=== PATIENT | female | born 1990 | race Caucasian/White ===

== ENCOUNTER 2016-05-01 22:30 | Emergency (ER) | payer MEDICAID ==
[~2016-05-01] VITALS: Ht 149.9 cm; Wt 44.0 kg
[~2016-05-01 22:30] MED LIST: BIRTH CONTROL PILL; EXCEDRINE; NEXIUM
[2016-05-01 23:06] VITALS: BP 130/69; PULSE 87; RESP 18; TEMP 97.9; O2SAT 98
[2016-05-01] MEDS ORDERED: AMOXICILLIN 500 MG CAPSULE PO ONE (23:45)
[2016-05-01 23:57] VITALS: BP 125/85; PULSE 85; RESP 18; TEMP 98.2; O2SAT 98
== END 2016-05-01 23:57 | disposition home or self-care (01) ==
LOC: SED 22:30
DX: K08.89 Other specified disorders of teeth and supporting structures (principal)
CPT/HCPCS: 99283

== ENCOUNTER 2016-05-06 13:07 | Emergency (ER) | payer MEDICAID ==
[~2016-05-06] VITALS: Ht 149.9 cm; Wt 43.1 kg
[2016-05-06 13:15] VITALS: BP 141/81; PULSE 105; RESP 16; TEMP 98.3; O2SAT 100
--- NOTE | 2016-05-06 14:21 | NUR ---
Called patient to room. No answer.
--- NOTE | 2016-05-06 14:26 | NUR ---
Patient is not in waiting room, hallway or restoom
--- NOTE | 2016-05-06 14:30 | NUR ---
Patient left without being seen.
== END 2016-05-06 14:30 | disposition left against medical advice (07) ==
LOC: SED 13:07
DX: R52 Pain, unspecified (principal); R50.9 Fever, unspecified; R05 Cough; Z53.21 Procedure and treatment not carried out due to patient leaving prior to being seen by health care provider

== ENCOUNTER 2016-07-31 13:15 | Emergency (ER) | payer MEDICAID ==
[~2016-07-31] VITALS: Ht 149.9 cm; Wt 44.5 kg
[~2016-07-31 13:15] MED LIST changes: -NEXIUM
[2016-07-31 13:28] VITALS: BP_SYST 128
[2016-07-31] MEDS ORDERED: ONDANSETRON 4 MG ODT TAB PO ONE (13:45)
[2016-07-31 14:11] LABS: BASOPHILS # (AUTO) 0.1 K/uL (0.0-0.2); BASOPHILS % (AUTO) 0.6 % (0.0-2.0); EOSINOPHILS # (AUTO) 0.1 K/uL (0.0-0.4); EOSINOPHILS % (AUTO) 1.3 % (0.0-4.0); HEMATOCRIT 40.1 % (36-48); HEMOGLOBIN 13.7 g/dL (12.0-16.0); LYMPHOCYTES # (AUTO) 0.9 K/uL (1.0-5.5); LYMPHOCYTES % (AUTO) 9.7 % (20.5-51.5); MEAN CORPUSCULAR HEMOGLOBIN 30 pg (27-31); MEAN CORPUSCULAR HGB CONC 34 % (32-36); MEAN CORPUSCULAR VOLUME 87 fL (79.0-98.0); MONOCYTES # (AUTO) 0.4 K/uL (0.0-1.0); MONOCYTES % (AUTO) 4.7 % (1.7-9.3); NEUTROPHILS # (AUTO) 7.6 K/uL (1.8-7.7); NEUTROPHILS % (AUTO) 83.7 % (40.0-70.0); PLATELET COUNT (AUTO) 219 K/uL (130-430); RED BLOOD CELL COUNT(AUTO) 4.62 MIL/uL (4.2-6.2); WHITE BLOOD COUNT (AUTO) 9.1 K/uL (4.8-10.8)
[2016-07-31 14:24] LABS: CALCIUM 8.5 mg/dL (8.4-11.0); CREATININE 0.69 mg/dL (0.55-1.30); POTASSIUM 3.9 mmol/L (3.5-5.1)
[2016-07-31 14:26] LABS: INR 1.1 (0.8-1.2); PROTHROMBIN TIME 11.4 SECS (9.5-12.5)
[2016-07-31 14:28] LABS: ALBUMIN 4.2 g/dL (3.4-4.8); TOTAL BILIRUBIN 0.8 mg/dL (0.0-1.0); TOTAL PROTEIN, SERUM 7.3 g/dL (6.4-8.3)
[2016-07-31 14:32] LABS: BILIRUBIN,URINE NEGATIVE (NEGATIVE); BLOOD, URINE 1+ (NEGATIVE); CLARITY/URINE HAZY (CLEAR); COLOR,URINE YELLOW (YELLOW); GLUCOSE,URINE NEGATIVE (NEGATIVE); KETONES,URINE NEGATIVE (NEGATIVE); LEUKOCYTE ESTERASE ,URINE NEGATIVE (NEGATIVE); NITRITE, URINE NEGATIVE (NEGATIVE); PH,URINE 8.5 (5.0-8.0); PROTEIN URINE 1+ (NEGATIVE); UROBILINOGEN,URINE 0.2 (0.2-1.0)
[2016-07-31 14:45] LABS: RBC,URINE 0-3 /HPF (0-3)
[2016-07-31 14:46] LABS: BACTERIA,URINE FEW /HPF (None Seen); MUCUS,URINE None Seen /LPF (None Seen); URINE AMORPHOUS PHOSPHATES 1+ /HPF (None Seen)
[2016-07-31 15:48] VITALS: BP_SYST 128
== END 2016-07-31 15:48 | disposition home or self-care (01) ==
LOC: SED 13:15
DX: N39.0 Urinary tract infection, site not specified (principal)
CPT/HCPCS: 36415; 74176; 80053; 81000; 83690; 85025; 85610; 85730; 99285; J7030; Q0162

== ENCOUNTER 2017-05-26 08:25 | Emergency (ER) | payer MEDICAID ==
[~2017-05-26] VITALS: Ht 149.9 cm; Wt 46.7 kg
[2017-05-26 08:29] VITALS: BP_SYST 140
[2017-05-26] MEDS ORDERED: DIPH-TET-PERTUS Vaccine 0.5 ML VIAL (ADACEL) I.M. ONE (09:00)
[2017-05-26 10:15] VITALS: BP_SYST 116
== END 2017-05-26 10:15 | disposition home or self-care (01) ==
LOC: SED 08:25
DX: S60.411A Abrasion of left index finger, initial encounter (principal); F17.210 Nicotine dependence, cigarettes, uncomplicated; Z90.49 Acquired absence of other specified parts of digestive tract; W55.01XA Bitten by cat, initial encounter; Y93.89 Activity, other specified; Y92.89 Other specified places as the place of occurrence of the external cause; Y99.8 Other external cause status
CPT/HCPCS: 90715; 99283

== ENCOUNTER 2018-01-20 19:50 | Emergency (ER) | payer MEDICAID ==
[~2018-01-20] VITALS: Ht 149.9 cm; Wt 44.0 kg
[2018-01-20 20:14] VITALS: BP_SYST 134
[2018-01-20 21:18] VITALS: BP_SYST 128
== END 2018-01-20 21:18 | disposition home or self-care (01) ==
LOC: SED 19:50
DX: K12.0 Recurrent oral aphthae (principal)
CPT/HCPCS: 99282

== ENCOUNTER 2019-05-15 07:21 | Emergency (ER) | payer MEDICAID ==
[~2019-05-15] VITALS: Ht 152.4 cm; Wt 43.5 kg
[2019-05-15 07:37] VITALS: BP_SYST 133
[2019-05-15 07:59] VITALS: BP_SYST 133
== END 2019-05-15 08:20 | disposition home or self-care (01) ==
LOC: SED 07:21
DX: K08.89 Other specified disorders of teeth and supporting structures (principal); F41.9 Anxiety disorder, unspecified; F17.200 Nicotine dependence, unspecified, uncomplicated
CPT/HCPCS: 99283

== ENCOUNTER 2019-05-15 23:36 | Emergency (ER) | payer MEDICAID ==
[~2019-05-15] VITALS: Ht 152.4 cm; Wt 43.5 kg
[2019-05-15 23:47] VITALS: BP_SYST 123
[2019-05-16] MEDS ORDERED: CLINDAMYCIN 600 MG in D5W 50 ML IV ONE (01:30)
[2019-05-16] MEDS ORDERED: NACL 0.9% 1,000 ML IV ONE (01:30)
[2019-05-16] MEDS ORDERED: DEXAMETHASONE SOD PHOSPHATE 10 MG/ML VIAL IVP ONE (01:30)
[2019-05-16 01:56] LABS: BASOPHILS # (AUTO) 0.1 K/uL (0.0-0.2); BASOPHILS % (AUTO) 0.9 % (0.0-2.0); EOSINOPHILS # (AUTO) 0.2 K/uL (0.0-0.4); EOSINOPHILS % (AUTO) 2.5 % (0.0-4.0); HEMATOCRIT 39.1 % (36-48); HEMOGLOBIN 13.1 g/dL (12.0-16.0); LYMPHOCYTES # (AUTO) 1.9 K/uL (1.0-5.5); LYMPHOCYTES % (AUTO) 19.1 % (20.5-51.5); MEAN CORPUSCULAR HEMOGLOBIN 30 pg (27-31); MEAN CORPUSCULAR HGB CONC 34 % (32-36); MEAN CORPUSCULAR VOLUME 90 fL (79.0-98.0); MONOCYTES % (AUTO) 10.2 % (1.7-9.3); NEUTROPHILS # (AUTO) 6.7 K/uL (1.8-7.7); NEUTROPHILS % (AUTO) 67.3 % (40.0-70.0); PLATELET COUNT (AUTO) 270 K/uL (130-430); RED BLOOD CELL COUNT(AUTO) 4.35 MIL/uL (4.2-6.2); WHITE BLOOD COUNT (AUTO) 9.9 K/uL (4.8-10.8)
[2019-05-16] MEDS ORDERED: CLINDAMYCIN 600 mg/50mL D5W 50 ML IV ONE (01:59)
[2019-05-16 02:02] LABS: CALCIUM 8.9 mg/dL (8.4-11.0); CREATININE 0.71 mg/dL (0.55-1.30); POTASSIUM 3.8 mmol/L (3.5-5.1)
[2019-05-16] MEDS ORDERED: IOHEXOL 100 ML IV ONE (02:05)
[2019-05-16] MEDS ORDERED: MORPHINE 2 MG/ML INJ. SYRINGE IVP ONE (02:15)
[2019-05-16 03:30] VITALS: BP_SYST 123
[2019-05-16] MEDS ORDERED: KETOROLAC TROMETHAMINE 15 MG VIAL IVP ONE (03:30)
== END 2019-05-16 03:30 | disposition home or self-care (01) ==
LOC: SED 23:36
DX: K08.89 Other specified disorders of teeth and supporting structures (principal); R22.0 Localized swelling, mass and lump, head; F41.9 Anxiety disorder, unspecified; E07.9 Disorder of thyroid, unspecified
CPT/HCPCS: 36415; 70487; 80048; 81025; 82962; 85025; 87040; 96365; 96375; 99285; J1100; J1885; J2270; J3490; J7030; Q9967

== ENCOUNTER 2020-01-30 12:45 | Emergency (ER) | payer MEDICAID ==
[~2020-01-30] VITALS: Ht 149.9 cm; Wt 43.1 kg
[2020-01-30 12:56] VITALS: BP_SYST 149
[2020-01-30] MEDS ORDERED: LORazepam 2 MG/ML VIAL IVP ONE (13:15)
[2020-01-30] MEDS ORDERED: NACL 0.9% 1,000 ML IV ONE (13:15)
[2020-01-30 13:40] LABS: BASOPHILS # (AUTO) 0.1 K/uL (0.0-0.2); BASOPHILS % (AUTO) 0.8 % (0.0-2.0); EOSINOPHILS # (AUTO) 0.5 K/uL (0.0-0.4); EOSINOPHILS % (AUTO) 5.6 % (0.0-4.0); HEMOGLOBIN 14.1 g/dL (12.0-16.0); LYMPHOCYTES # (AUTO) 2.6 K/uL (1.0-5.5); LYMPHOCYTES % (AUTO) 30.7 % (20.5-51.5); MEAN CORPUSCULAR HEMOGLOBIN 30 pg (27-31); MEAN CORPUSCULAR HGB CONC 34 % (32-36); MEAN CORPUSCULAR VOLUME 89 fL (79.0-98.0); MONOCYTES # (AUTO) 0.7 K/uL (0.0-1.0); MONOCYTES % (AUTO) 8.1 % (1.7-9.3); NEUTROPHILS # (AUTO) 4.7 K/uL (1.8-7.7); NEUTROPHILS % (AUTO) 54.8 % (40.0-70.0); PLATELET COUNT (AUTO) 394 K/uL (130-430); RED BLOOD CELL COUNT(AUTO) 4.73 MIL/uL (4.2-6.2); RED CELL DISTRIBUTION WIDTH 12.6 % (9.0-15.0); WHITE BLOOD COUNT (AUTO) 8.6 K/uL (4.8-10.8)
[2020-01-30 13:43] LABS: BILIRUBIN,URINE NEGATIVE (NEGATIVE); BLOOD, URINE NEGATIVE (NEGATIVE); CLARITY/URINE CLEAR (CLEAR); COLOR,URINE YELLOW (YELLOW); GLUCOSE,URINE NEGATIVE (NEGATIVE); KETONES,URINE NEGATIVE (NEGATIVE); LEUKOCYTE ESTERASE ,URINE NEGATIVE (NEGATIVE); NITRITE, URINE NEGATIVE (NEGATIVE); PH,URINE 8.5 (5.0-8.0); PROTEIN URINE NEGATIVE (NEGATIVE); UROBILINOGEN,URINE 0.2 (0.2-1.0)
[2020-01-30 13:57] LABS: BARBITURATE, URINE NEGATIVE (NEG <=200); BENZODIAZEPINE, URINE NEGATIVE (NEG <=150); CANNABINOID, URINE POSITIVE (NEG <=50); COCAINE, URINE POSITIVE (NEG <=150); METHAMPHETAMINES SCREEN,URINE NEGATIVE (NEG <=500); OPIATE, URINE NEGATIVE (NEG <=100); PHENCYCLIDINE SCREEN,URINE NEGATIVE (NEG <=25); URINE AMPHETAMINE NEGATIVE (NEG <=500); URINE METHADONE NEGATIVE (NEG <=200); URINE OXYCODONE SCREEN NEGATIVE (NEG <=100)
[2020-01-30 13:58] LABS: UR TRICYCLIC ANTIDEPRESSANTS NEGATIVE (NEG <=300); URINE PROPOXYPHENE SCREEN NEGATIVE (NEG <=300)
[2020-01-30 14:13] LABS: CALCIUM 8.6 mg/dL (8.4-11.0); CREATININE 0.88 mg/dL (0.55-1.30); POTASSIUM 3.1 mmol/L (3.5-5.1)
[2020-01-30 14:28] LABS: ALBUMIN 4.7 g/dL (3.4-4.8); FREE T4 (FREE THYROXINE) 1.1 ng/dl (0.8-1.5); THYROID STIMULATING HORMONE 0.55 uIu/mL (0.36-3.74); TOTAL BILIRUBIN 1.3 mg/dL (0.0-1.0)
[2020-01-30 14:52] VITALS: BP_SYST 149
== END 2020-01-30 14:52 | disposition home or self-care (01) ==
LOC: SED 12:45
DX: F41.9 Anxiety disorder, unspecified (principal); R00.2 Palpitations; F14.10 Cocaine abuse, uncomplicated; F12.90 Cannabis use, unspecified, uncomplicated
CPT/HCPCS: 36415; 71045; 80053; 80307; 81003; 81025; 84439; 84443; 84479; 84484; 85025; 93005; 96374; 99285; J2060; J7030

== ENCOUNTER 2020-03-10 10:01 | Emergency (ER) | payer MEDICAID ==
[~2020-03-10] VITALS: Ht 149.9 cm; Wt 43.1 kg
[2020-03-10 10:06] VITALS: BP_SYST 137
--- NOTE | 2020-03-10 10:10 | NUR ---
Dr Cooney evaluating patient at bedside
--- NOTE | 2020-03-10 10:12 | NUR ---
Pt brought by self, A&Ox4, pt presents to ER with anxiety, pt states she started lexapro today for anxiety and not feeling good , skin pink and warm, cap refill <3, VSS.
[2020-03-10 11:33] VITALS: BP_SYST 132
--- NOTE | 2020-03-10 11:34 | NUR ---
Patient given written and verbal discharge instructions and verbalizes understanding. ER MD discussed with patient the results and treatment provided. Patient in stable condition. ID arm band removed. No Rx given. Patient educated on pain management and to follow up with PMD. Pain Scale 0/10. Opportunity for questions provided and answered. Medication side effect fact sheet provided.
== END 2020-03-10 11:34 | disposition home or self-care (01) ==
LOC: SED 10:01
DX: F41.9 Anxiety disorder, unspecified (principal); E07.9 Disorder of thyroid, unspecified; F17.200 Nicotine dependence, unspecified, uncomplicated
CPT/HCPCS: 93005; 99283

== ENCOUNTER 2020-05-18 11:03 | Emergency (ER) | payer MEDICAID ==
[~2020-05-18] VITALS: Ht 149.9 cm; Wt 44.0 kg
[2020-05-18 11:11] VITALS: BP_SYST 137
[2020-05-18] MEDS ORDERED: LIDOCAINE/EPI 1% 1:100000 20 ML VIAL INJ ONE (12:00)
[2020-05-18] MEDS ORDERED: BACITRACIN 1 GM OINT TP ONE (12:45)
[2020-05-18 12:55] VITALS: BP_SYST 137
== END 2020-05-18 12:55 | disposition home or self-care (01) ==
LOC: SED 11:03
DX: S61.411A Laceration without foreign body of right hand, initial encounter (principal); E07.9 Disorder of thyroid, unspecified; F41.9 Anxiety disorder, unspecified; W26.8XXA Contact with other sharp object(s), not elsewhere classified, initial encounter; Y93.89 Activity, other specified; Y92.89 Other specified places as the place of occurrence of the external cause; Y99.8 Other external cause status
CPT/HCPCS: 99283

== ENCOUNTER 2020-07-13 11:16 | Emergency (ER) | payer MEDICAID, SELFPAY ==
[~2020-07-13] VITALS: Ht 149.9 cm; Wt 43.1 kg
[2020-07-13 11:16] VITALS: BP_SYST 118
[2020-07-13] MEDS ORDERED: IVER3TAB PO (12:44)
[2020-07-13] MEDS ORDERED: ZINC220T4 PO (12:44)
[2020-07-13 12:50] VITALS: BP_SYST 121
== END 2020-07-13 12:50 | disposition home or self-care (01) ==
LOC: SED 11:16
DX: U07.1 COVID-19 (principal); F41.9 Anxiety disorder, unspecified; E07.9 Disorder of thyroid, unspecified; Z79.899 Other long term (current) drug therapy
CPT/HCPCS: 36415; 99283

== ENCOUNTER 2021-04-07 18:55 | Emergency (ER) | payer MEDICAID, SELFPAY ==
[~2021-04-07] VITALS: Ht 149.9 cm; Wt 41.7 kg
[~2021-04-07 18:55] MED LIST changes: +IVER3TAB PO; +ZINC220T4 PO
[2021-04-07 19:05] VITALS: BP_SYST 130
--- NOTE | 2021-04-07 19:05 | NUR ---
Patient triaged in the tent. VSS and patient appears in no acute distress at this time., awaiting available bed, and MD notified of need for MSE.
--- NOTE | 2021-04-07 19:10 | NUR ---
Pt yuriy giraldos calling her mother to pick her up
--- NOTE | 2021-04-07 19:42 | NUR ---
Sarah farmer in [facility] - 04/07/21 at 1943 by SDEDPR BASSAM Murillo examining patient in the tent.
--- NOTE | 2021-04-07 19:43 | NUR ---
Per Dr dumont pt not in the tent.Pt LWBS.
--- NOTE | 2021-04-07 19:45 | NUR ---
call pt name in the tent.no answer.
[2021-04-08] MEDS ORDERED: ANT30 PO (11:09)
[2021-04-08] MEDS ORDERED: OMEP40CA20 PO (11:09)
[2021-04-08] MEDS ORDERED: ONDA-8 TL (11:09)
[2021-04-08] MEDS ORDERED: DICY10CA13 PO (11:09)
== END 2021-04-07 19:45 | disposition left against medical advice (07) ==
LOC: SED 18:55
DX: R42 Dizziness and giddiness (principal); Z53.21 Procedure and treatment not carried out due to patient leaving prior to being seen by health care provider

== ENCOUNTER 2021-04-08 08:02 | Emergency (ER) | payer MEDICAID, SELFPAY ==
[~2021-04-08] VITALS: Ht 149.9 cm; Wt 43.1 kg
[2021-04-08 08:15] VITALS: BP_SYST 131
[2021-04-08] MEDS ORDERED: NACL 0.9% 1,000 ML IV ONE (09:00)
[2021-04-08] MEDS ORDERED: MAG HYDROX/AL HYDROX/SIMETH 30 ML, DICYCLOMINE HCL 20 MG, LIDOCAINE VISCOUS 2% 15ML (PO... PO ONE ×3 (09:00)
[2021-04-08] MEDS ORDERED: ONDANSETRON HCL 4 MG/2 ML VIAL IVP ONE (09:00)
[2021-04-08 09:28] LABS: BASOPHILS % (AUTO) 0.3 % (0.0-2.0); HEMATOCRIT 38.6 % (36-48); HEMOGLOBIN 13.1 g/dL (12.0-16.0); LYMPHOCYTES # (AUTO) 0.6 K/uL (1.0-5.5); LYMPHOCYTES % (AUTO) 4.7 % (20.5-51.5); MEAN CORPUSCULAR HEMOGLOBIN 29 pg (27-31); MEAN CORPUSCULAR HGB CONC 34 % (32-36); MEAN CORPUSCULAR VOLUME 84 fL (79.0-98.0); MONOCYTES # (AUTO) 0.4 K/uL (0.0-1.0); MONOCYTES % (AUTO) 3.1 % (1.7-9.3); NEUTROPHILS # (AUTO) 11.1 K/uL (1.8-7.7); NEUTROPHILS % (AUTO) 91.9 % (40.0-70.0); PLATELET COUNT (AUTO) 286 K/uL (130-430); RED BLOOD CELL COUNT(AUTO) 4.58 MIL/uL (4.2-6.2); RED CELL DISTRIBUTION WIDTH 12.7 % (9.0-15.0); WHITE BLOOD COUNT (AUTO) 12.1 K/uL (4.8-10.8)
--- NOTE | 2021-04-08 09:35 | NUR ---
RECEIVED REPORT, PT COMES TO ER WITH C/O NAUSEA/VOMITING X 1 DAY, X 20 TIMES. STATES SHE ATE A BURGER LAST NIGHT AND HAS FELT WITH EPIGASTRIC PAIN 10/10 LAST NIGHT. REPORTS FEELING BETTER. SKIN W/D/I. RESP EVEN AND UNLABORED, ON RA @99%.
[2021-04-08 09:39] LABS: CALCIUM 9.4 mg/dL (8.4-11.0); CREATININE 0.49 mg/dL (0.55-1.30); POTASSIUM 4.4 mmol/L (3.5-5.1)
--- NOTE | 2021-04-08 09:52 | NUR ---
NO BED AVAILABLE AT THIS TIME. IV SL TO LEF AC, MEDICATED ORDERED, IV FLUIDS INFUSING WELL. CN AWARE.
[2021-04-08 09:55] LABS: ALBUMIN 4.6 g/dL (3.4-4.8); TOTAL BILIRUBIN 2.1 mg/dL (0.0-1.0)
[2021-04-08 10:28] LABS: BILIRUBIN,URINE NEGATIVE (NEGATIVE); BLOOD, URINE NEGATIVE (NEGATIVE); CLARITY/URINE CLEAR (CLEAR); COLOR,URINE YELLOW (YELLOW); GLUCOSE,URINE NEGATIVE (NEGATIVE); KETONES,URINE 3+ (NEGATIVE); LEUKOCYTE ESTERASE ,URINE NEGATIVE (NEGATIVE); NITRITE, URINE NEGATIVE (NEGATIVE); PROTEIN URINE TRACE (NEGATIVE); UROBILINOGEN,URINE 0.2 (0.2-1.0)
--- NOTE | 2021-04-08 10:43 | NUR ---
Sarah farmer in [facility] - 04/08/21 at 1047 by SDTRAVPD [facility] CALLED WITH +POSITIVE TEST RESULTS.
--- NOTE | 2021-04-08 10:46 | NUR ---
Sarah farmer in [facility] - 04/08/21 at 1047 by SDTRAVPD PT MOVED TO TENT OUTSIDE, MOTHER INFORMED.
--- NOTE | 2021-04-08 10:47 | NUR ---
PT REPORTS FEELING BETTER, NO VOMITING WHILE HERE IN ER.
[2021-04-08] MEDS ORDERED: DICY10CA13 PO (11:09)
[2021-04-08] MEDS ORDERED: ONDA-8 TL (11:09)
[2021-04-08] MEDS ORDERED: ANT30 PO (11:09)
[2021-04-08] MEDS ORDERED: OMEP40CA20 PO (11:09)
--- NOTE | 2021-04-08 11:55 | NUR ---
Patient given written and verbal discharge instructions and verbalizes understanding. ER MD discussed with patient the results and treatment provided. Patient in stable condition. ID arm band removed. IV catheter removed intact and dressing applied, no active bleeding. Rx of protonix, maalox given. Patient educated on pain management and to follow up with PMD. Pain Scale 0. Opportunity for questions provided and answered. Medication side effect fact sheet provided.
[2021-04-08 12:01] VITALS: BP_SYST 109
== END 2021-04-08 11:55 | disposition home or self-care (01) ==
LOC: SED 08:02
DX: K29.00 Acute gastritis without bleeding (principal); E86.0 Dehydration; Z79.899 Other long term (current) drug therapy; Z20.822 Contact with and (suspected) exposure to COVID-19
CPT/HCPCS: 36415; 74018; 80053; 81003; 83690; 84702; 85025; 87426; 96361; 96374; 99284; J2001; J2405; J7030